=== PATIENT | female | born 1995 | race Caucasian/White ===

== ENCOUNTER 2019-09-02 11:43 | Emergency (ER) | payer OTHER, MEDICAID ==
[~2019-09-02] VITALS: Ht 162.6 cm; Wt 77.6 kg
[2019-09-02] MEDS ORDERED: PNV 29-1 TABLE1 EACH PO (11:55)
[2019-09-02] MEDS ORDERED: AUGMENTIN 500-1 EACH PO (12:19)
[2019-09-02 12:48] VITALS: BP 122/65
== END 2019-09-02 13:03 | disposition home or self-care (01) ==
LOC: M.ERS 11:43
DX: S61.411A Laceration without foreign body of right hand, initial encounter (principal); F17.210 Nicotine dependence, cigarettes, uncomplicated; Z98.890 Other specified postprocedural states; Z90.49 Acquired absence of other specified parts of digestive tract; Z88.6 Allergy status to analgesic agent; W54.0XXA Bitten by dog, initial encounter; Y93.89 Activity, other specified; Y92.89 Other specified places as the place of occurrence of the external cause; Y99.8 Other external cause status